=== PATIENT | female | born 1940 | race Caucasian/White ===

== ENCOUNTER 2019-08-04 16:16 | Observation (INO) ==
[2019-08-04] MEDS ORDERED: Naloxone 0.4 MG/ML INJ IVP PRN (21:51)
[2019-08-04] MEDS: *HR* Heparin 5,000 UNIT/ML VIAL SQ SCH (23:32)
[2019-08-05] MEDS ORDERED: NON-FORMULARY MEDICATION 1 EACH EACH (Cetirizine Hcl [Zyrtec] 10 MG) PO PRN (00:25)
[2019-08-05] MEDS ORDERED: Loratadine 10 MG TABLET PO PRN (00:41)
[2019-08-05] MEDS: *HR* Heparin 5,000 UNIT/ML VIAL SQ SCH ×3 (03:45→22:41)
[2019-08-05 04:30] LABS: Basophils % 0.7 %; Eosinophils # 0.1 K/mcL (0.0-0.6); Hematocrit 37.1 % (35.3-44.9); Hemoglobin 12.2 g/dL (11.5-15.4); Immature Granulocytes % 0.2 % (0-4); Lymphocytes # 1.1 K/mcL (0.6-4.6); Mean Corpuscular HGB Conc 32.9 g/dL (31.6-35.5); Mean Corpuscular Hemoglobin 34.4 pg (28.0-33.3); Mean Corpuscular Volume 104.5 fL (83.0-100.0); Mean Platelet Volume 10.6 fL (9.4-12.4); Monocytes % 16.1 %; Neutrophils # 3.7 K/mcL (1.6-8.9); Platelet Count 132 K/mcL (140-400); Red Blood Count 3.55 M/mcL (3.82-4.97); Red Cell Distribution Width 14.6 % (11.5-14.5)
[2019-08-05 04:36] LABS: INR 1.7; Prothrombin Time 18.9 Seconds (9.4-12.1)
[2019-08-05 04:38] LABS: Activated Partial Thrombo Time 35.7 Seconds (26.0-36.0)
[2019-08-05 04:46] LABS: Alanine Aminotransferase 15 Units/L (7-52); Albumin 2.3 g/dL (3.5-5.7); Albumin/Globulin Ratio 0.6 (1.1-2.2); Alkaline Phosphatase 187 Units/L (34-104); Aspartate Amino Transferase 42 Units/L (13-39); BUN/Creatinine Ratio 12 (6-26); Bilirubin,Total 2.1 mg/dL (0.3-1.0); Blood Urea Nitrogen 8 mg/dL (8-23); Calcium 8.1 mg/dL (8.6-10.3); Carbon Dioxide 23 mEq/L (23-29); Chloride 107 mEq/L (98-107); Globulin 3.9 g/dL (2.4-3.5); Glucose 100 mg/dL (70-105); Osmolality,Calculated 288 (280-300); Potassium 3.8 mEq/L (3.5-5.1); Sodium 140 mEq/L (136-145); Total Protein 6.2 g/dL (6.4-8.9); eGFR For African Americans > 60 (> 60); eGFR For Non-African Americans > 60 (> 60)
[2019-08-05] MEDS: Lactulose Oral Soln 20 GM/30 ML UDC PO SCH ×2 (09:37→22:41)
[2019-08-05] MEDS: Furosemide 40 MG TABLET PO SCH (17:27)
[2019-08-05 18:32] LABS: Amylase,Pleural Fluid 14 Units/L (No Ref Range); Glucose,Pleural Fluid 107 mg/dL (No Ref Range); LDH,Pleural Fluid 66 Units/L (No Ref Range); Total Protein,Pleural Fluid < 3.0 g/dL
[2019-08-05 18:38] LABS: Appearance of Pleural Fl Clear (Clear)
[2019-08-05 19:04] LABS: RBC,Pleural Fluid < 0.002 M/mcL
[2019-08-05 20:55] LABS: Basophils,Pleural Fluid 0 %; Eosinophils,Pleural Fluid 0 %; Monocytes,Pleural Fluid 0 %
[2019-08-06] MEDS: *HR* Heparin 5,000 UNIT/ML VIAL SQ SCH (05:13)
[2019-08-06 08:08] VITALS: BP 118/81
[2019-08-06] MEDS: Furosemide 40 MG TABLET PO SCH (08:52)
[2019-08-06] MEDS: Lactulose Oral Soln 20 GM/30 ML UDC PO SCH (08:53)
== END 2019-08-06 16:50 | disposition home or self-care (01) ==
LOC: 2NENU → SUATTDRO 18:30
PROVIDERS: ADMIT Student in an Organized Health Care Education/Training Program; ATTEND Internal Medicine

== ENCOUNTER 2019-08-08 03:17 | Observation (INO) ==
[2019-08-08] MEDS ORDERED: Ondansetron 4 MG/2 ML VIAL IVP PRN (07:24)
[2019-08-08] MEDS ORDERED: Naloxone 0.4 MG/ML INJ IVP PRN (07:24)
[2019-08-08] MEDS ORDERED: *HR* Metoprolol 5 MG/5 ML VIAL IVP PRN (07:37)
[2019-08-08] MEDS ORDERED: Nitroglycerin 0.4 MG TAB.SUBL SL PRN (07:37)
[2019-08-08] MEDS ORDERED: Furosemide 20 MG/2 ML VIAL IVP ONE (08:04)
[2019-08-08] MEDS: Ipratropium/Albuterol Neb 3 ML IH SCH ×5 (08:22→23:12)
[2019-08-08 08:32] LABS: ABG Base Excess 4 mEq/L (-2 to 3); ABG HCO3 29 mEq/L (21-27); ABG Oxygen Saturation 94 % (95-98); ABG PCO2 42 mmHg (35-45); ABG PH 7.44 pH Units (7.32-7.45); ABG PO2 70 mmHg (85-104); ABG TCO2 30 mEq/L (20-26)
[2019-08-08 08:35] LABS: Basophils % 0.2 %; Hematocrit 37.1 % (35.3-44.9); Hemoglobin 12.8 g/dL (11.5-15.4); Immature Granulocytes % 0.4 % (0-4); Lymphocytes # 0.3 K/mcL (0.6-4.6); Lymphocytes % 5.6 %; Mean Corpuscular HGB Conc 34.5 g/dL (31.6-35.5); Mean Corpuscular Hemoglobin 35.2 pg (28.0-33.3); Mean Corpuscular Volume 101.9 fL (83.0-100.0); Mean Platelet Volume 10.6 fL (9.4-12.4); Monocytes # 0.1 K/mcL (0.0-1.3); Monocytes % 1.7 %; Platelet Count 118 K/mcL (140-400); Red Blood Count 3.64 M/mcL (3.82-4.97); Red Cell Distribution Width 14.6 % (11.5-14.5); Segmented Neutrophils % 92.1 %; White Blood Count 5.4 K/mcL (4.3-11.1)
[2019-08-08 08:38] LABS: INR 1.4
[2019-08-08] MEDS: Insulin LISPRO 300 UNITS/3 ML VIAL SQ SCH ×4 (08:50→20:07)
[2019-08-08 08:55] LABS: BUN/Creatinine Ratio 18 (6-26); Blood Urea Nitrogen 13 mg/dL (8-23); Calcium 8.2 mg/dL (8.6-10.3); Carbon Dioxide 27 mEq/L (23-29); Chloride 101 mEq/L (98-107); Glucose 246 mg/dL (70-105); Osmolality,Calculated 290 (280-300); Potassium 3.8 mEq/L (3.5-5.1); Sodium 136 mEq/L (136-145); eGFR For African Americans > 60 (> 60); eGFR For Non-African Americans > 60 (> 60)
[2019-08-08] MEDS ORDERED: Perflutren Lipid Microsphere 1.3 ML in 0.9 % Sodium Chloride 8.7 ML IVP ONE (11:41)
[2019-08-08] MEDS: *HR* Heparin 5,000 UNIT/ML VIAL SQ SCH (17:23)
[2019-08-09] MEDS: Ipratropium/Albuterol Neb 3 ML IH SCH ×5 (03:46→20:04)
[2019-08-09] MEDS: *HR* Heparin 5,000 UNIT/ML VIAL SQ SCH ×2 (06:25→16:41)
[2019-08-09] MEDS: Insulin LISPRO 300 UNITS/3 ML VIAL SQ SCH ×4 (07:28→20:16)
[2019-08-09] MEDS ORDERED: Furosemide 40 MG/4 ML VIAL IVP ONE (08:13)
[2019-08-10] MEDS: Ipratropium/Albuterol Neb 3 ML IH SCH ×4 (00:05→11:03)
[2019-08-10 01:33] LABS: Hematocrit 32.9 % (35.3-44.9); Mean Corpuscular HGB Conc 33.7 g/dL (31.6-35.5); Mean Corpuscular Hemoglobin 34.4 pg (28.0-33.3); Mean Corpuscular Volume 101.9 fL (83.0-100.0); Platelet Count 108 K/mcL (140-400); Red Blood Count 3.23 M/mcL (3.82-4.97); Red Cell Distribution Width 15.2 % (11.5-14.5)
[2019-08-10 01:35] LABS: Hemoglobin 11.1 g/dL (11.5-15.4); White Blood Count 11.6 K/mcL (4.3-11.1)
[2019-08-10 01:56] LABS: BUN/Creatinine Ratio 35 (6-26); Blood Urea Nitrogen 28 mg/dL (8-23); Carbon Dioxide 28 mEq/L (23-29); Chloride 101 mEq/L (98-107); Glucose 170 mg/dL (70-105); Osmolality,Calculated 293 (280-300); Potassium 3.9 mEq/L (3.5-5.1); Sodium 137 mEq/L (136-145); eGFR For African Americans > 60 (> 60); eGFR For Non-African Americans > 60 (> 60)
[2019-08-10 02:09] LABS: Thyroid Stimulating Hormone 0.652 mcIU/mL (0.340-5.600)
[2019-08-10] MEDS: *HR* Heparin 5,000 UNIT/ML VIAL SQ SCH (05:32)
[2019-08-10 07:40] VITALS: BP 122/65
[2019-08-10] MEDS: Insulin LISPRO 300 UNITS/3 ML VIAL SQ SCH (08:01)
[2019-08-10] MEDS ORDERED: Loratadine 10 MG TABLET PO SCH (09:00)
[2019-08-10] MEDS ORDERED: Lactulose Oral Soln 20 GM/30 ML UDC PO SCH ×2 (09:00→15:00)
[2019-08-10] MEDS ORDERED: Furosemide 40 MG/4 ML VIAL IVP SCH (10:28)
== END 2019-08-10 11:39 | disposition critical access hospital (66) ==
LOC: 2NNU → SUATTDRO 06:29 → INTOOBSV 06:29 → OBSVTOIN 06:29
PROVIDERS: ADMIT Internal Medicine; ATTEND Internal Medicine

== ENCOUNTER 2021-09-14 16:54 | Observation (INO) ==
[2021-09-14] MEDS ORDERED: Melatonin 3 MG TABLET PO PRN (21:24)
[2021-09-14] MEDS ORDERED: Naloxone 0.4 MG/ML INJ IVP PRN (21:24)
[2021-09-14] MEDS ORDERED: *HR* Dextrose 50 % in Water (Syg) 50 ML SYRINGE IVP PRN (21:45)
[2021-09-14] MEDS ORDERED: Dextrose Gel 15 GM/37.5 ML TUBE PO PRN ×2 (21:45)
[2021-09-14] MEDS ORDERED: Lactulose Oral Soln 20 GM/30 ML UDC PO SCH (21:45)
[2021-09-14] MEDS ORDERED: D5% in Water 1,000 ML IVC PRN (21:45)
[2021-09-14] MEDS: rOPINIRole 1 MG TABLET PO SCH (22:47)
[2021-09-15 02:13] LABS: Red Blood Count 3.22 M/mcL (3.82-4.97)
[2021-09-15 02:15] LABS: Hematocrit 33.9 % (35.3-44.9); Hemoglobin 11.2 g/dL (11.5-15.4); Immature Platelets 3.4 % (1.1-6.1); Mean Corpuscular Hemoglobin 34.8 pg (28.0-33.3); Mean Corpuscular Volume 105.3 fL (83.0-100.0); Mean Platelet Volume 11.3 fL (9.4-12.4); Red Cell Distribution Width 13.4 % (11.5-14.5); White Blood Count 5.7 K/mcL (4.3-11.1)
[2021-09-15 02:22] LABS: Calcium 8.7 mg/dL (8.6-10.3); Magnesium 2.1 mg/dL (1.6-2.6); Potassium 3.8 mEq/L (3.5-5.1)
[2021-09-15] MEDS: *HR* Heparin 5,000 UNIT/ML VIAL SQ SCH ×2 (04:34→17:59)
[2021-09-15] MEDS ORDERED: Lactulose Oral Soln 20 GM/30 ML UDC PO SCH (06:00)
[2021-09-15] MEDS: Insulin LISPRO 300 UNITS/3 ML VIAL SUBQ SCH ×3 (07:28→17:59)
[2021-09-15] MEDS: rOPINIRole 1 MG TABLET PO SCH ×3 (08:19→15:26)
[2021-09-15] MEDS ORDERED: rOPINIRole 1 MG TABLET PO SCH (09:00)
[2021-09-15] MEDS ORDERED: Cholecalciferol (D-3) 1,000 UNIT (25MCG) TABLET PO SCH (09:00)
[2021-09-15] MEDS ORDERED: Thiamine (B-1) 100 MG TABLET PO SCH (15:00)
[2021-09-15 15:38] VITALS: BP 134/67; PULSE 82; TEMP 98.1; O2SAT 95
[2021-09-15 18:08] LABS: Folate > 22.3 ng/mL (3.0-16.0); Vitamin B12 1013 pg/mL (250-1100)
[2021-09-15] MEDS ORDERED: Insulin LISPRO 300 UNITS/3 ML VIAL SUBQ SCH (21:00)
== END 2021-09-15 18:40 | disposition home or self-care (01) ==
LOC: 3BNU
PROVIDERS: ADMIT Pharmacist; ATTEND Pharmacist

== ENCOUNTER 2021-12-22 17:22 | Inpatient (IN) ==
[2021-12-22] MEDS ORDERED: Naloxone 0.4 MG/ML INJ IVP PRN (20:38)
[2021-12-22] MEDS ORDERED: Ondansetron 4 MG/2 ML VIAL IVP PRN (20:38)
[2021-12-22] MEDS: 0.9 % Sodium Chloride 1,000 ML IVC SCH (21:14)
[2021-12-22] MEDS ORDERED: D5% in Water 1,000 ML IVC PRN (21:44)
[2021-12-22] MEDS ORDERED: Dextrose 4 GM Chewable Tablets PO PRN ×2 (21:44)
[2021-12-22] MEDS ORDERED: *HR* Dextrose 50 % in Water (Syg) 50 ML SYRINGE IVP PRN (21:44)
[2021-12-22] MEDS: Lactulose Oral Soln 20 GM/30 ML UDC PO SCH (22:46)
[2021-12-23 00:06] LABS: Bacteria,Urine Few per hpf (None-Few); Bilirubin,Urine Negative (Negative); Blood,Urine Moderate (Negative); Clarity,Urine Ex.Turbid (Clear); Color,Urine Yellow (Yellow); Glucose,Urine (UA) Normal (Normal); Ketones,Urine Negative (Negative); Leukocyte Esterase,Urine Large (Negative); Nitrite,Urine Negative (Negative); Protein,Urine Trace mg/dL (Neg-Trace); Specific Gravity,Urine 1.016 (1.010-1.025); Squamous Epithelial Cell,Urine Many per hpf (None-Few); Transitional Epi Cells,Urine Few per hpf (None-Few); Urobilinogen,Urine Normal (Normal); WBC,Urine TNTC per hpf (0-3)
[2021-12-23 06:46] LABS: INR 1.3; Prothrombin Time 14.6 Seconds (9.4-12.1)
[2021-12-23] MEDS: Cholecalciferol (D-3) 1,000 UNIT (25MCG) TABLET PO SCH (08:18)
[2021-12-23] MEDS: rOPINIRole 0.25 MG TABLET PO SCH ×4 (08:18→21:04)
[2021-12-23] MEDS: Lactulose Oral Soln 20 GM/30 ML UDC PO SCH ×2 (08:18→21:04)
[2021-12-23] MEDS: Insulin LISPRO 300 UNITS/3 ML VIAL SUBQ SCH ×3 (08:19→17:31)
[2021-12-23] MEDS: 0.9 % Sodium Chloride 1,000 ML IVC SCH ×2 (08:19→17:37)
[2021-12-23 08:31] LABS: Hemoglobin 12.1 g/dL (11.5-15.4); Immature Granulocytes % 0.2 % (0-4); Mean Corpuscular Volume 108.2 fL (83.0-100.0); Mean Platelet Volume 10.7 fL (9.4-12.4); Monocytes % 15.8 %
[2021-12-23 08:32] LABS: Estimated Average Glucose 131 mg/dl; Hemoglobin A1C 6.2 %
[2021-12-23 08:33] LABS: Basophils # 0.1 K/mcL (0.0-0.2); Basophils % 0.8 %; Eosinophils # 0.1 K/mcL (0.0-0.6); Eosinophils % 1.7 %; Hematocrit 36.9 % (35.3-44.9); Immature Platelets 2.4 % (1.1-6.1); Lymphocytes % 16.1 %; Mean Corpuscular HGB Conc 32.8 g/dL (31.6-35.5); Mean Corpuscular Hemoglobin 35.5 pg (28.0-33.3); Red Blood Count 3.41 M/mcL (3.82-4.97); Segmented Neutrophils % 65.4 %
[2021-12-23 08:54] LABS: Neutrophils # 3.9 K/mcL (1.6-8.9); Platelet Count 96 K/mcL (140-400)
[2021-12-23 12:04] LABS: Thyroid Stimulating Hormone 0.33 mcIU/mL (0.340-5.600)
[2021-12-23 12:05] LABS: Calcium 8.7 mg/dL (8.6-10.3); Chol/HDL Ratio 3.2 (0-4.9); Magnesium 2.4 mg/dL (1.6-2.6); Phosphorous 3.4 mg/dL (2.7-4.5); Potassium 4.3 mEq/L (3.5-5.1)
[2021-12-23] MEDS: cefTRIAXone 1,000 MG in 0.9 % Sodium Chloride Mini Bag 100 ML IVPB SCH (17:35)
[2021-12-24 01:45] LABS: Alanine Aminotransferase 29 Units/L (7-52); Albumin 2.4 g/dL (3.5-5.7); Albumin/Globulin Ratio 0.8 (1.1-2.2); Alkaline Phosphatase 161 Units/L (34-104); Aspartate Amino Transferase 87 Units/L (13-39); BUN/Creatinine Ratio 20 (6-26); Bilirubin,Total 2.3 mg/dL (0.3-1.0); Blood Urea Nitrogen 21 mg/dL (8-23); Calcium 8.1 mg/dL (8.6-10.3); Carbon Dioxide 19 mEq/L (23-29); Chloride 113 mEq/L (98-107); Glucose 92 mg/dL (70-105); Osmolality,Calculated 291 (280-300); Potassium 3.8 mEq/L (3.5-5.1); Sodium 139 mEq/L (136-145); Total Protein 5.4 g/dL (6.4-8.9); eGFR For African Americans > 60 (> 60); eGFR For Non-African Americans 50 (> 60)
[2021-12-24 01:46] LABS: Basophils # 0.1 K/mcL (0.0-0.2); Eosinophils # 0.2 K/mcL (0.0-0.6); Eosinophils % 4.6 %; Hematocrit 33.7 % (35.3-44.9); Hemoglobin 11.1 g/dL (11.5-15.4); Lymphocytes % 21.3 %; Mean Corpuscular HGB Conc 32.9 g/dL (31.6-35.5); Mean Corpuscular Hemoglobin 36.3 pg (28.0-33.3); Mean Corpuscular Volume 110.1 fL (83.0-100.0); Mean Platelet Volume 10.8 fL (9.4-12.4); Monocytes # 0.7 K/mcL (0.0-1.3); Monocytes % 14.1 %; Neutrophils # 2.8 K/mcL (1.6-8.9); Platelet Count 86 K/mcL (140-400); Red Blood Count 3.06 M/mcL (3.82-4.97); Red Cell Distribution Width 13.9 % (11.5-14.5); White Blood Count 4.8 K/mcL (4.3-11.1)
[2021-12-24] MEDS: 0.9 % Sodium Chloride 1,000 ML IVC SCH ×2 (05:47→17:15)
[2021-12-24] MEDS: Cholecalciferol (D-3) 1,000 UNIT (25MCG) TABLET PO SCH (09:16)
[2021-12-24] MEDS: Lactulose Oral Soln 20 GM/30 ML UDC PO SCH ×2 (09:17→20:19)
[2021-12-24] MEDS: rOPINIRole 0.25 MG TABLET PO SCH ×2 (09:17→13:27)
[2021-12-24] MEDS: Insulin LISPRO 300 UNITS/3 ML VIAL SUBQ SCH ×3 (09:24→17:32)
[2021-12-24] MEDS: Acetaminophen 325 MG TABLET PO PRN (13:57)
[2021-12-24] MEDS: cefTRIAXone 1,000 MG in 0.9 % Sodium Chloride Mini Bag 100 ML IVPB SCH (17:17)
[2021-12-24] MEDS: rOPINIRole 1 MG TABLET PO SCH (21:18)
[2021-12-25 03:57] LABS: Monocytes % 16.7 %
[2021-12-25 03:59] LABS: Eosinophils # 0.2 K/mcL (0.0-0.6); Eosinophils % 5.7 %; Hematocrit 34.2 % (35.3-44.9); Hemoglobin 10.8 g/dL (11.5-15.4); Immature Platelets 2.6 % (1.1-6.1); Lymphocytes # 0.9 K/mcL (0.6-4.6); Lymphocytes % 22.1 %; Mean Corpuscular HGB Conc 31.6 g/dL (31.6-35.5); Mean Corpuscular Hemoglobin 34.7 pg (28.0-33.3); Mean Platelet Volume 10.9 fL (9.4-12.4); Monocytes # 0.7 K/mcL (0.0-1.3); Neutrophils # 2.2 K/mcL (1.6-8.9); Red Blood Count 3.11 M/mcL (3.82-4.97); Red Cell Distribution Width 13.6 % (11.5-14.5); Segmented Neutrophils % 54.5 %
[2021-12-25 04:04] LABS: Platelet Count 78 K/mcL (140-400)
[2021-12-25 04:18] LABS: Albumin 2.4 g/dL (3.5-5.7); Albumin/Globulin Ratio 0.8 (1.1-2.2); Bilirubin,Total 1.3 mg/dL (0.3-1.0); Calcium 7.9 mg/dL (8.6-10.3); Globulin 2.9 g/dL (2.4-3.5); Potassium 3.9 mEq/L (3.5-5.1); Total Protein 5.3 g/dL (6.4-8.9)
[2021-12-25] MEDS: 0.9 % Sodium Chloride 1,000 ML IVC SCH ×2 (04:29→12:43)
[2021-12-25] MEDS: Insulin LISPRO 300 UNITS/3 ML VIAL SUBQ SCH ×2 (08:36→12:43)
[2021-12-25] MEDS: Acetaminophen 325 MG TABLET PO PRN (08:37)
[2021-12-25] MEDS: Cholecalciferol (D-3) 1,000 UNIT (25MCG) TABLET PO SCH (08:37)
[2021-12-25] MEDS: Lactulose Oral Soln 20 GM/30 ML UDC PO SCH (08:37)
[2021-12-25] MEDS: rOPINIRole 1 MG TABLET PO SCH (08:37)
[2021-12-25 12:58] VITALS: BP 120/70; PULSE 77; TEMP 98; O2SAT 98
== END 2021-12-25 13:17 | disposition home or self-care (01) | DRG 441 ==
LOC: 3NENU → SUATTDRO 19:34
PROVIDERS: ADMIT Internal Medicine; ATTEND Family Medicine

== ENCOUNTER 2022-07-25 17:19 | Inpatient (IN) ==
[2022-07-25] MEDS ORDERED: Naloxone 0.4 MG/ML INJ IVP PRN (22:43)
[2022-07-25] MEDS ORDERED: Ondansetron 4 MG/2 ML VIAL IVP PRN (22:43)
[2022-07-25] MEDS ORDERED: D5% in Water 1,000 ML IVC PRN (22:46)
[2022-07-25] MEDS ORDERED: *HR* Dextrose 50 % in Water (Syg) 50 ML SYRINGE IVP PRN (22:46)
[2022-07-25] MEDS ORDERED: Dextrose Gel 15 GM/37.5 ML TUBE PO PRN ×2 (22:46)
[2022-07-25] MEDS ORDERED: Lactulose Oral Soln 20 GM/30 ML UDC PO SCH (23:00)
[2022-07-26] MEDS: 0.9 % Sodium Chloride 1,000 ML IVC SCH ×2 (01:13→16:45)
[2022-07-26] MEDS: Lactulose Oral Soln 20 GM/30 ML UDC PO SCH ×4 (01:18→23:38)
[2022-07-26 05:09] LABS: Hemoglobin 9.1 g/dL (11.5-15.4); Immature Granulocytes % 0.3 % (0-4); Mean Corpuscular Volume 107.6 fL (83.0-100.0); Mean Platelet Volume 11.4 fL (9.4-12.4)
[2022-07-26 05:11] LABS: Basophils # 0.1 K/mcL (0.0-0.2); Eosinophils # 0.2 K/mcL (0.0-0.6); Eosinophils % 2.8 %; Hematocrit 28.4 % (35.3-44.9); Immature Platelets 3.8 % (1.1-6.1); Lymphocytes # 0.8 K/mcL (0.6-4.6); Lymphocytes % 11.1 %; Mean Corpuscular Hemoglobin 34.5 pg (28.0-33.3); Monocytes # 1.1 K/mcL (0.0-1.3); Neutrophils # 4.9 K/mcL (1.6-8.9); Red Blood Count 2.64 M/mcL (3.82-4.97); Red Cell Distribution Width 13.8 % (11.5-14.5); Segmented Neutrophils % 68.8 %; White Blood Count 7.1 K/mcL (4.3-11.1)
[2022-07-26 05:16] LABS: INR 1.5; Prothrombin Time 16.7 Seconds (9.4-12.1)
[2022-07-26 05:18] LABS: Platelet Count 82 K/mcL (140-400)
[2022-07-26 05:27] LABS: Albumin 2.3 g/dL (3.5-5.7); Albumin/Globulin Ratio 0.8 (1.1-2.2); Bilirubin,Direct 0.6 mg/dL (0.0-0.2); Bilirubin,Indirect 1.3 mg/dL (0.0-1.0); Bilirubin,Total 1.9 mg/dL (0.3-1.0); Calcium 7.8 mg/dL (8.6-10.3); Magnesium 1.9 mg/dL (1.6-2.6); Phosphorous 3.1 mg/dL (2.7-4.5); Potassium 3.7 mEq/L (3.5-5.1); Total Protein 5.3 g/dL (6.4-8.9)
[2022-07-26 05:28] LABS: % Iron Saturation 22 % (15-50); Iron 55 mcg/dL (50-170); Transferrin 176 mg/dL (203-362)
[2022-07-26 05:46] LABS: Ferritin 78 ng/mL (10-120)
[2022-07-26 05:51] LABS: Folate 20.7 ng/mL (3.0-16.0)
[2022-07-26 05:53] LABS: Vitamin B12 > 1500 pg/mL (250-1100)
[2022-07-26] MEDS: cefTRIAXone 1,000 MG in 0.9 % Sodium Chloride Mini Bag 100 ML IVPB SCH (09:03)
[2022-07-26] MEDS: Lactobacillus 1 EACH CAP.SPRINK PO SCH ×2 (09:04→23:38)
[2022-07-26] MEDS: Insulin LISPRO 300 UNITS/3 ML VIAL SUBQ SCH ×3 (09:04→16:26)
[2022-07-26 09:35] LABS: INR 1.4; Prothrombin Time 15.7 Seconds (9.4-12.1)
[2022-07-26 09:38] LABS: Activated Partial Thrombo Time 32.1 Seconds (26.0-36.0)
[2022-07-26] MEDS ORDERED: Spironolactone 25 MG TABLET PO SCH (11:45)
[2022-07-26] MEDS: Torsemide 20 MG TABLET PO SCH ×2 (12:41→16:19)
[2022-07-26] MEDS: Gabapentin 100 MG CAPSULE PO SCH ×3 (12:42→23:38)
[2022-07-26] MEDS: rOPINIRole 1 MG TABLET PO SCH ×2 (16:19→23:38)
[2022-07-27 02:12] LABS: Basophils # 0.1 K/mcL (0.0-0.2); Eosinophils # 0.2 K/mcL (0.0-0.6); Eosinophils % 3.8 %; Hematocrit 27.2 % (35.3-44.9); Hemoglobin 8.8 g/dL (11.5-15.4); Immature Granulocytes % 0.3 % (0-4); Immature Platelets 3.4 % (1.1-6.1); Lymphocytes # 1.1 K/mcL (0.6-4.6); Lymphocytes % 17.2 %; Mean Corpuscular HGB Conc 32.4 g/dL (31.6-35.5); Mean Corpuscular Hemoglobin 34.5 pg (28.0-33.3); Mean Corpuscular Volume 106.7 fL (83.0-100.0); Mean Platelet Volume 11.3 fL (9.4-12.4); Monocytes % 15.6 %; Neutrophils # 3.8 K/mcL (1.6-8.9); Red Blood Count 2.55 M/mcL (3.82-4.97); Red Cell Distribution Width 13.6 % (11.5-14.5); Segmented Neutrophils % 62.1 %; White Blood Count 6.1 K/mcL (4.3-11.1)
[2022-07-27 02:13] LABS: Platelet Count 71 K/mcL (140-400)
[2022-07-27 02:30] LABS: Albumin 2.2 g/dL (3.5-5.7); Albumin/Globulin Ratio 0.8 (1.1-2.2); Bilirubin,Direct 0.5 mg/dL (0.0-0.2); Bilirubin,Indirect 1.3 mg/dL (0.0-1.0); Bilirubin,Total 1.8 mg/dL (0.3-1.0); Calcium 7.6 mg/dL (8.6-10.3); Globulin 2.7 g/dL (2.4-3.5); Potassium 3.4 mEq/L (3.5-5.1); Total Protein 4.9 g/dL (6.4-8.9)
[2022-07-27 07:58] VITALS: BP 102/64; PULSE 84; TEMP 98.2; O2SAT 94
[2022-07-27] MEDS ORDERED: Spironolactone 25 MG TABLET PO SCH (08:00)
[2022-07-27] MEDS: Lactulose Oral Soln 20 GM/30 ML UDC PO SCH (09:44)
[2022-07-27] MEDS: rOPINIRole 1 MG TABLET PO SCH (09:45)
[2022-07-27] MEDS: Gabapentin 100 MG CAPSULE PO SCH (09:45)
[2022-07-27] MEDS: Lactobacillus 1 EACH CAP.SPRINK PO SCH (09:45)
[2022-07-27] MEDS: Torsemide 20 MG TABLET PO SCH (09:46)
[2022-07-27] MEDS: cefTRIAXone 1,000 MG in 0.9 % Sodium Chloride Mini Bag 100 ML IVPB SCH (09:47)
[2022-07-27] MEDS: Insulin LISPRO 300 UNITS/3 ML VIAL SUBQ SCH (09:51)
== END 2022-07-27 15:45 | disposition home health service (06) | DRG 433 ==
LOC: 2ANU → SUATTDRO 21:46
PROVIDERS: ADMIT Internal Medicine; ATTEND Internal Medicine